=== PATIENT | male | born 1975 | race Caucasian/White ===

== ENCOUNTER 2024-11-25 16:05 | Inpatient (IN) | payer OTHER, SELFPAY ==
[2024-11-25 11:26] VITALS: BP 189/98
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
[2024-11-25] MEDS: ADACEL 0.5 ML IM (13:09)
[2024-11-25 13:22] VITALS: BMI 28.2
[2024-11-25 13:30] LABS: % Basophils 0.4 % (0-2); % Eosinophils 1.1 % (0-6); % Immature Granulocytes 0.2 % (0-0.5); % Lymphocytes 20.7 % (20.5-51.1); % Monocytes 13.9 % (1.7-9.3); % Neutrophils 63.7 % (42.2-75.2); Absolute Eosinophils 0.1 10^3/uL (0-0.7); Absolute Lymphocytes 1.7 10^3/uL (1.2-3.4); Absolute Monocytes 1.1 10^3/uL (0.1-0.6); Absolute Neutrophils 5.1 10^3/uL (1.4-6.5); Hematocrit 42.3 % (39.0-52.0); Hemoglobin 14.7 g/dL (13.0-18.0); Mean Corp Hgb Conc. 34.8 g/dL (33.0-37.0); Mean Corpuscular Hgb 31.7 pg (27.0-31.0); Mean Corpuscular Volume 91.4 fL (80.0-94.0); Nucleated Red Blood Cells % 0 % (-); Red Blood Cell Count 4.63 10^6/uL (4.70-6.10); Red Cell Dist. Width 13.8 % (11.5-14.5); White Blood Cell Count 8.1 10^3/uL (4.8-10.8)
[2024-11-25 13:34] LABS: ALT (SGPT) 54 U/L (0-50); AST (SGOT) 64 U/L (17-59); Albumin 4.4 g/dl (3.5-5.0); Alkaline Phosphatase 90 U/L (38-126); Blood Urea Nitrogen 8 mg/dl (9-20); Calcium 9.4 mg/dl (8.4-10.2); Carbon Dioxide 25 mmol/L (22-30); Chloride 106 mmol/L (98-107); Estimated Creatinine Clearance > 125 ml/min; Glucose 107 mg/dl (70-99); Potassium 4.1 mmol/L (3.5-5.1); Sodium 139 mmol/L (135-145); Total Bilirubin 1.3 mg/dl (0.2-1.3); Total Protein 7.6 g/dl (6.3-8.2); eGFR > 60.00
[2024-11-25] MEDS: UNASYN IV ×2 (13:55→20:11)
[2024-11-25 14:01] LABS: Platelet Count 131 10^3/uL (130-400)
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
--- NOTE | 2024-11-25 17:30 | PTCARENOTE ---
Patient admitted in to room 434-2. AAOx3. Able to make needs known. Oriented to unit and call justin system.
[2024-11-25 17:43] VITALS: BP 182/98
[2024-11-25 18:28] VITALS: BP 183/76
[2024-11-25] MEDS: MOTRIN 400 MG PO (20:09)
[2024-11-25] MEDS: THIAMINE INJECTION 200 MG IV (20:10)
[2024-11-25] MEDS: LEXAPRO 20 MG PO (21:35)
[2024-11-25] MEDS: WELLBUTRIN XL (24 hour extended release) 300 MG PO (21:35)
[2024-11-25] MEDS: ATIVAN 1 MG PO (21:35)
[2024-11-25 23:00] VITALS: BP 175/93
[2024-11-26] VITALS (8 sets, daily range): BP systolic 130–182; BP diastolic 70–104
[2024-11-26] MEDS: UNASYN IV ×4 (01:59→20:14)
[2024-11-26] MEDS: MOTRIN 400 MG PO ×3 (03:04→15:18)
[2024-11-26 07:20] LABS: % Basophils 0.6 % (0-2); % Eosinophils 3.1 % (0-6); % Immature Granulocytes 0.3 % (0-0.5); % Lymphocytes 27.6 % (20.5-51.1); % Neutrophils 54.4 % (42.2-75.2); Absolute Eosinophils 0.2 10^3/uL (0-0.7); Absolute Lymphocytes 1.9 10^3/uL (1.2-3.4); Absolute Neutrophils 3.7 10^3/uL (1.4-6.5); Hematocrit 42.4 % (39.0-52.0); Hemoglobin 14.6 g/dL (13.0-18.0); Mean Corp Hgb Conc. 34.4 g/dL (33.0-37.0); Mean Corpuscular Hgb 31.9 pg (27.0-31.0); Mean Corpuscular Volume 92.6 fL (80.0-94.0); Mean Platelet Volume 12.6 fL (7.4-10.4); Nucleated Red Blood Cells % 0 % (-); Platelet Count 120 10^3/uL (130-400); Red Blood Cell Count 4.58 10^6/uL (4.70-6.10); Red Cell Dist. Width 13.7 % (11.5-14.5); White Blood Cell Count 6.8 10^3/uL (4.8-10.8)
[2024-11-26 07:45] LABS: Blood Urea Nitrogen 11 mg/dl (9-20); Carbon Dioxide 25 mmol/L (22-30); Chloride 102 mmol/L (98-107); Estimated Creatinine Clearance > 125 ml/min; Glucose 100 mg/dl (70-99); Magnesium 2.3 mg/dl (1.6-2.3); Potassium 3.6 mmol/L (3.5-5.1); Sodium 138 mmol/L (135-145); eGFR > 60.00
[2024-11-26] MEDS: NORVASC 2.5 MG PO (08:34)
[2024-11-26] MEDS: THIAMINE INJECTION 200 MG IV ×2 (08:34→20:16)
[2024-11-26] MEDS: FOLVITE 1 MG PO (08:34)
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
[2024-11-26 09:10] LABS: ALT (SGPT) 46 U/L (0-50); AST (SGOT) 54 U/L (17-59); Alkaline Phosphatase 81 U/L (38-126); Direct Bilirubin 0.5 mg/dl (0.0-0.4); Total Bilirubin 1.7 mg/dl (0.2-1.3)
--- NOTE | 2024-11-26 10:27 | CM ---
CM reviewed chart. Spoke with pt. Explained role and discussed anticipated dc plan/options.
Facesheet information confirm. 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
No skilled needs noted at this time.
Pt will be driving himself home at dc.
CM/SW will continue to follow to ensure a safe and timely dc.
[2024-11-26] MEDS: KCL 20 MEQ PO (11:18)
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
[2024-11-26] MEDS: APRESOLINE 10 MG IV ×2 (15:18→18:46)
[2024-11-26] MEDS: LEXAPRO 20 MG PO (20:15)
[2024-11-26] MEDS: WELLBUTRIN XL (24 hour extended release) 300 MG PO (20:15)
[2024-11-26] MEDS: ATIVAN 1 MG PO (20:22)
[2024-11-27] MEDS: UNASYN IV ×2 (01:10→09:43)
[2024-11-27] MEDS: MOTRIN 400 MG PO (03:33)
[2024-11-27 07:00] VITALS: BP 166/96
[2024-11-27 09:20] LABS: % Basophils 0.2 % (0-2); % Eosinophils 3.7 % (0-6); % Immature Granulocytes 0.2 % (0-0.5); % Lymphocytes 25.2 % (20.5-51.1); % Monocytes 14.5 % (1.7-9.3); % Neutrophils 56.2 % (42.2-75.2); Absolute Eosinophils 0.2 10^3/uL (0-0.7); Absolute Lymphocytes 1.5 10^3/uL (1.2-3.4); Absolute Monocytes 0.9 10^3/uL (0.1-0.6); Absolute Neutrophils 3.3 10^3/uL (1.4-6.5); Hematocrit 42.7 % (39.0-52.0); Hemoglobin 14.6 g/dL (13.0-18.0); Mean Corp Hgb Conc. 34.2 g/dL (33.0-37.0); Mean Corpuscular Hgb 31.3 pg (27.0-31.0); Mean Corpuscular Volume 91.6 fL (80.0-94.0); Nucleated Red Blood Cells % 0 % (-); Platelet Count 129 10^3/uL (130-400); Red Blood Cell Count 4.66 10^6/uL (4.70-6.10); Red Cell Dist. Width 13.8 % (11.5-14.5); White Blood Cell Count 5.9 10^3/uL (4.8-10.8)
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
[2024-11-27] MEDS: THIAMINE INJECTION 200 MG IV (09:42)
[2024-11-27] MEDS: FOLVITE 1 MG PO (09:42)
[2024-11-27] MEDS: NORVASC 2.5 MG PO (09:42)
[2024-11-27 10:12] LABS: ALT (SGPT) 41 U/L (0-50); AST (SGOT) 55 U/L (17-59); Albumin 4.1 g/dl (3.5-5.0); Alkaline Phosphatase 75 U/L (38-126); Blood Urea Nitrogen 10 mg/dl (9-20); Calcium 9.3 mg/dl (8.4-10.2); Carbon Dioxide 22 mmol/L (22-30); Chloride 107 mmol/L (98-107); Direct Bilirubin 0.4 mg/dl (0.0-0.4); Estimated Creatinine Clearance > 125 ml/min; Glucose 114 mg/dl (70-99); Potassium 3.9 mmol/L (3.5-5.1); Sodium 137 mmol/L (135-145); Total Bilirubin 1.2 mg/dl (0.2-1.3); Total Protein 7.1 g/dl (6.3-8.2); eGFR > 60.00
--- NOTE | 2024-11-27 11:10 | W.PN.ID1 ---
Date of Service
Date of Service: November 27, 2024
Today's Communication
- switch to augmentin 875/125 mg po BID x14 days
Assessment / Plan
Tenosynovitis of the Right Hand due to dog bite
- provoked dog bite - dogs both vaccinated for rabies
- Tdap was given in the ER
- no foreign bodies
- on unasyn - now with further improved range of motion
- switch to augmentin 875/125 mg po BID x14 days
Chief Complaint
-: Other (tenosynovitis)
Subjective / Review of Systems
afebrile
bp stable
no events overnight
improved range of motion
Vital Signs / Physical Exam
Vital Signs
Vital Signs
Temp Pulse Resp BP Pulse Ox
97.2 F 66 16 166/96 95
11/27/24 07:00 11/27/24 07:00 11/27/24 07:00 11/27/24 07:00 11/27/24 07:00
Physical Exam
Constitutional: No Acute Distress
Cardiovascular: Regular Rate and S1/S2; Negative Murmur or Rub
Pulmonary: Clear and Symmetric; Negative Wheezes or Rales
Gastrointestinal: Soft, Non Tender, Non Distended and Normal Bowel Sounds
Musculoskeletal: Other (now with full faro dealer strength of the right hand)
Skin: Warm and Dry; Negative Rash or Jaundice
Objective Data
Lab Data
Lab Results
11/27/24 08:51
11/27/24 08:51
Estimated Creat Clear > 125 ml/min 11/27/24 08:51
Total Bilirubin 1.2 mg/dl (0.2-1.3) 11/27/24 08:51
AST 55 U/L (17-59) 11/27/24 08:51
ALT 41 U/L (0-50) 11/27/24 08:51
Alkaline Phosphatase 75 U/L (38-126) 11/27/24 08:51
Most recent labs reviewed.
Care Review
Plan reviewed with: Physician (Dr Eleanor dow)
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
== END 2024-11-27 14:43 | disposition home or self-care (01) | DRG 605 ==
LOC: 4 WEST ACU 16:05
PROVIDERS: Physician Assistant; ADMITTING PHYSICIAN Internal Medicine; CONSULT PHYSICIAN Student in an Organized Health Care Education/Training Program; EMERGENCY PHYSICIAN Emergency Medicine; FAMILY PHYSICIAN Nurse Practitioner Family
PROC: 3E0234Z Introduction of Serum, Toxoid and Vaccine into Muscle, Percutaneous Approach (ICD-10-PCS; 2024-11-25)
DX: S60.571A Other superficial bite of hand of right hand, initial encounter (principal); L03.113 Cellulitis of right upper limb; I10 Essential (primary) hypertension; F41.9 Anxiety disorder, unspecified; F17.210 Nicotine dependence, cigarettes, uncomplicated; R74.01 Elevation of levels of liver transaminase levels; S63.8X1A Sprain of other part of right wrist and hand, initial encounter; F10.90 Alcohol use, unspecified, uncomplicated; W54.0XXA Bitten by dog, initial encounter; Z23 Encounter for immunization
CPT/HCPCS: 73201; 80053; 82248; 83735; 85025; 90471; 90715; 96365; 97165; 99284; 99406; Q9967

== ENCOUNTER 2025-05-21 19:51 | Emergency (ER) | payer OTHER, SELFPAY ==
[2025-05-21 19:53] VITALS: BP 149/88
[2025-05-21 20:08] LABS: Hematocrit 41.1 % (39.0-52.0); Hemoglobin 14.2 g/dL (13.0-18.0); Mean Corp Hgb Conc. 34.5 g/dL (33.0-37.0); Mean Corpuscular Volume 92.2 fL (80.0-94.0); Nucleated Red Blood Cells % 0 % (-); Platelet Count 142 10^3/uL (130-400); Red Cell Dist. Width 13.5 % (11.5-14.5)
[2025-05-21 20:22] LABS: ALT (SGPT) 45 U/L (0-50); AST (SGOT) 75 U/L (17-59); Albumin 4.7 g/dl (3.5-5.0); Alkaline Phosphatase 76 U/L (38-126); Blood Urea Nitrogen 11 mg/dl (9-20); Calcium 9.7 mg/dl (8.4-10.2); Carbon Dioxide 25 mmol/L (22-30); Chloride 106 mmol/L (98-107); Glucose 118 mg/dl (70-99); Lipase 151 U/L (23-300); Potassium 3.7 mmol/L (3.5-5.1); Sodium 140 mmol/L (135-145); Total Protein 8.0 g/dl (6.3-8.2); eGFR > 60.00
[2025-05-21 21:39] VITALS: BMI 31.0
[2025-05-21 21:46] VITALS: BP 149/81
--- NOTE | 2025-05-21 22:26 | ED.GENMED ---
History of Present Illness
General
Chief Complaint: Rectal Bleeding
Source: patient
Time Seen by Provider: 05/21/25 22:06
History of Present Illness
History of Present Illness:
50-year-old male with past medical history of hypertension, hyperlipidemia, anxiety and depression presenting to the emergency department for evaluation of rectal bleeding which she states he believes to be related to internal hemorrhoids as he has
a history of this but noting the symptoms over the last 24 to 36 hours have been much more severe noting that he will just have spontaneous leaking now requiring him to wear adult diapers so as to not ruin his close. Patient states that he had a
large coughing spell on Wednesday which caused him some pain into the left mid to lower abdomen, notes all the pain is much improved is still slightly present and he is not sure if the symptoms are related. Patient does see a [employer] b[employer] architect due to his
internal hemorrhoids, noting he had a hemorrhoid banded about a month ago. He denies any rectal pain associated with this. No chest pain, shortness of breath, lightheadedness, near syncope like symptoms. Of note, patient often drinks 3+ beers
daily, notes he has not had a drink in about a week
Past History
Past History
ED Past Medical History: Hypercholesterolemia and Psychiatric
ED Past Surgical History: None
Social History
Tobacco: Smoker
Alcohol: Occasional
Drug: None
Personal:
Living: with family
Employment: Employed
Review of Systems
Review of Systems
All Other Systems: ROS reviewed and negative except as documented in HPI and ROS
Phy Exam
Physical Exam
Physical Exam:
GENERAL: Alert , in no apparent distress
EYE: clear conjunctiva b/l
HEAD: NCAT
ENT: o/p clr, mmm.
CARDIAC: Regular rate and rhythm .
LUNGS: Clear breath sounds bilaterally, no acute respiratory distress, no wheezes/rales/rhonchi
RECTAL EXAM: dried blood ruthie-rectally. Stool light brown with streak of blood, heme pos
ABDOMEN: Soft, without focal tenderness, no r/g, no cvat
NEUROLOGICAL: Alert and oriented
SKIN: Warm and dry, skin intact.
MUSCULOSKELETAL: No edema, well perfused.
PSYCH: Normal and appropriate interaction.
Scores
Heart Failure Risk
Heart Failure Risk Score: Not Applicable
Heart Score for Chest Pain Patients
STEMI patient?: Not applicable
Withdrawal Assessment of Alcohol
Withdrawal Assessment Completed?: Not applicable
Course
Orders/Labs/Results
Orders:
Orders
05/21/25 20:00
Complete Blood Count/With Diff Urgent
Comprehensive Metabolic Panel Urgent
Lipase Urgent
05/21/25 22:15
CT Abd/pelvis W Iv Cont Urgent
Comment:
Reason For Exam: rectal bleeding, mild pain LLQ
05/21/25 22:36
PT/INR [Prothrombin Time] Urgent
PTT Urgent
Abnormal Lab Results
05/21/25 05/21/25
20:00 22:36
RBC 4.46 L 10^6/uL
(4.70-6.10)
MCH 31.8 H pg
(27.0-31.0)
MPV 12.4 H fL
(7.4-10.4)
Absolute Monos (auto) 0.7 H 10^3/uL
(0.1-0.6)
Monocytes % 9.6 H %
(1.7-9.3)
PT 15.8 H Sec
(11.4-14.6)
APTT 35.6 H Sec
(23.4-35.0)
Glucose 118 H mg/dl
(70-99)
AST 75 H U/L
(17-59)
05/21/25 20:00
05/21/25 20:00
Vital Signs
Initial and Last Documented VS:
Initial Vital Signs
Temp Pulse Resp BP Pulse Ox
98.5 F 94 16 149/88 98
05/21/25 19:53 05/21/25 19:53 05/21/25 19:53 05/21/25 19:53 05/21/25 19:53
Last Documented Vital Signs
Temp Pulse Resp BP Pulse Ox
98.5 F 86 20 163/97 97
05/21/25 19:53 05/22/25 00:00 05/22/25 00:00 05/22/25 00:54 05/22/25 00:00
MDM/Problems Addressed
Differential Diagnosis Includes:
Internal Hemorrhoid
External Hemorrhoid
Anal fissure
Diverticulitis
Diverticulosis
Anemia
Gastritis
MDM/Problems Addressed:
50-year-old male presenting the ER for evaluation of rectal bleeding. Based off description of bleeding I have high degree of suspicion for internal hemorrhoid bleeding. I am going to order a CT scan of the abdomen due to patient's reported pain
in the left side of his abdomen although I do suspect this is more from a muscle strain given it occurred in after patient reports he had a harsh cough. Labs were ordered on arrival which show a stable hemoglobin. CT scan ordered. Disposition
pending
*Radiology
Radiology exam reviewed: radiology read reviewed
*Pulse Oximetry
SaO2: 98
Oxygen Mode of Delivery: Room air
Patient hypoxic: no
*Critical Care Note
Total Time (30-74mins, 75-104mins- exclusive of procedures): Not Applicable
Patient Management
Escalation/DeEscalation of care consider admission/obs:
Patient CT scan shows no acute bowel pathology. Overall I still have high degree of suspicion for hemorrhoidal bleeding. Patient without any further significant bleeding here. Symptoms remain under control. Prescription for Anusol sent to
patient's pharmacy. 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 Patient aware of return precautions to the ER.
ED Attending Note
-
Portions of this chart may have been created with voice recognition software.� Occasional wrong word or��sound alike� substitutions may have occurred due to the inherent limitations of voice recognition software.
Discharge Plan
Departure
Patient Disposition: Home (Routine Discharge)
Date of Disposition: 05/22/25
Time of Disposition: 00:53
Patient with high blood pressure during this ER visit?: Yes
Discharge Problem:
Bleeding hemorrhoids
Instructions: Hemorrhoids - ED (DC)
Prescriptions:
New
hydrocortisone acetate [Anusol-HC] 25 mg suppository
25 mg ND BID Qty: 24 0RF
No Action
lorazepam 0.5 mg Tablet
1 mg PO HSPRN PRN (Reason: sleep)
ibuprofen 200 mg Tablet
400 mg PO Q6HPRN PRN (Reason: mild pain)
hydroxyzine pamoate 25 mg Capsule
50 mg PO HSPRN PRN (Reason: sleep)
escitalopram oxalate 20 mg Tablet
20 mg PO HS
bupropion HCl 300 mg Tablet Extended Release 24 Hr
300 mg PO HS
amlodipine 2.5 mg Tablet
2.5 mg PO DAILY Qty: 30 0RF
amoxicillin-pot clavulanate 875-125 mg tablet
1 tab PO Q12H 14 Days Qty: 28 0RF
Referrals:
David Roy MD [Active, ColoRectal]
Ria Bailey CRNP [Family Provider]
Stand Alone Forms: Return to Work
Interventions
Interventions:
*Risk Screen - Suicide Last Done: 05/21/25 21:39
*General Assessment Last Done: 05/21/25 21:39
*Neglect/Abuse Screening Last Done: 05/21/25 21:39
*ED- Fall Risk Assessment Last Done: 05/21/25 21:39
*ED COVID-19 Vaccine History Last Done: 05/22/25 00:40
*Nursing Disposition Last Done: 05/22/25 00:58
JT-Kkjuav-Beluztbbov Assessment Last Done: 05/21/25 21:47
ED- Cardiac Assessment Last Done: 05/21/25 21:47
ED- Pulmonary Assessment Last Done: 05/21/25 21:47
Discharge Date and Time
Print Language: SLOVAK
[2025-05-21 22:51] LABS: INR 1.24; PT 15.8 Sec (11.4-14.6)
[2025-05-21 22:52] LABS: APTT 35.6 Sec (23.4-35.0)
[2025-05-22 00:54] VITALS: BP 163/97
== END 2025-05-22 00:59 | disposition home or self-care (01) ==
LOC: EMR 19:51
PROVIDERS: Emergency Medicine; EMERGENCY PHYSICIAN Emergency Medicine; FAMILY PHYSICIAN Nurse Practitioner Family
DX: K62.5 Hemorrhage of anus and rectum (principal); R10.32 Left lower quadrant pain; K64.8 Other hemorrhoids; R05.9 Cough, unspecified; E78.00 Pure hypercholesterolemia, unspecified; F32.A Depression, unspecified; F41.9 Anxiety disorder, unspecified; I10 Essential (primary) hypertension; F17.200 Nicotine dependence, unspecified, uncomplicated
CPT/HCPCS: 99284; 74177; 80053; 83690; 85025; 85610; 85730; Q9967

== ENCOUNTER 2025-06-26 19:16 | Emergency (ER) | payer OTHER, SELFPAY ==
[2025-06-26 19:19] VITALS: BP 147/90
[2025-06-26 20:10] VITALS: BMI 31.9
[2025-06-26 20:15] VITALS: BP 153/85
--- NOTE | 2025-06-26 21:14 | ED.GENMED ---
History of Present Illness
General
Chief Complaint: Swelling
Source: patient
Time Seen by Provider: 06/26/25 20:38
History of Present Illness
History of Present Illness:
50-year-old male with past medical history of hyperlipidemia presenting to the emergency department for evaluation of bilateral lower extremity swelling has been ongoing the last 2 weeks accompanied with some mild lower back pain, family friends
thought the patient might have kidney problems which is why he presented to the ER today. Patient notes that the swelling to the legs will often get better after awakening and worsens throughout the day, describes a heaviness/aching sensation.
Patient notes while there is no color change there was a slight area of erythema along the right anterior leg but there is no pain associated with this. He denies any fevers, chills, rigors. No risk factors for DVT other than smoking. Denies
recent travel or family history. Patient is otherwise denying shortness of breath, exertional dyspnea, orthopnea, chest pain, palpitations, cough or any other symptoms suggestive of a cardiopulmonary process
Past History
Past History
ED Past Medical History: Hypercholesterolemia and Psychiatric
ED Past Surgical History: None
Social History
Tobacco: Smoker
Alcohol: Occasional
Drug: None
Personal:
Living: with family
Employment: Employed
Review of Systems
Review of Systems
All Other Systems: ROS reviewed and negative except as documented in HPI and ROS
Phy Exam
Physical Exam
Physical Exam:
GENERAL: Alert , in no apparent distress
HEAD: Normocephalic atraumatic
EYE: conjunctiva clear
NECK: Supple
ENT: o/p clr, mmm.
CARDIAC: Regular rate and rhythm
LUNGS: Clear breath sounds bilaterally, no acute respiratory distress, no wheezes/rales/rhonchi
NEUROLOGICAL: Alert and oriented
SKIN: Warm and dry, skin intact. Slight erythema that is nontender, nonraised, does not jan to the right anterior lower leg
MUSCULOSKELETAL: well perfused. Moderate trace pitting edema to the ankles, edema extends into the proximal portion of the bilateral tib-fib region, right is slightly worse than left. Sensation intact and equal, warm, cap refill less than 2
seconds. Full range of motion
PSYCH: Normal and appropriate interaction.
Scores
Heart Failure Risk
Heart Failure Risk Score: Not Applicable
Heart Score for Chest Pain Patients
STEMI patient?: Not applicable
Withdrawal Assessment of Alcohol
Withdrawal Assessment Completed?: Not applicable
Course
Orders/Labs/Results
Orders:
Orders
06/26/25 20:54
Venous Doppler Lwr Ext Bilat [US Periph Venous LOWER Ext Dylan] Urgent
Comment:
Reason For Exam: edema
06/26/25 21:37
Complete Blood Count/With Diff Urgent
Comprehensive Metabolic Panel Urgent
Urinalysis Urgent
Date Specimen was Collected: 06/26/25
Time Specimen was Collected: 21:31
Urine Microscopic Urgent
Date Specimen was Collected: 06/26/25
Time Specimen was Collected: 21:31
Abnormal Lab Results
06/26/25
21:37
RBC 4.43 L 10^6/uL
(4.70-6.10)
MCH 31.4 H pg
(27.0-31.0)
MPV 12.0 H fL
(7.4-10.4)
Absolute Monos (auto) 0.8 H 10^3/uL
(0.1-0.6)
Monocytes % 12.5 H %
(1.7-9.3)
BUN 7 L mg/dl
(9-20)
AST 65 H U/L
(17-59)
Total Protein 8.4 H g/dl
(6.3-8.2)
Urine Occult Blood 3+ A
(Negative)
Ur Leukocyte Esterase 2+ A
(Negative)
Urine RBC 3-6 A /HPF
(0-2)
Urine Albumin 2+ A
(Neg - Trace)
06/26/25 21:37
06/26/25 21:37
Vital Signs
Initial and Last Documented VS:
Initial Vital Signs
Temp Pulse Resp BP Pulse Ox
98.1 F 80 16 147/90 99
06/26/25 19:19 06/26/25 19:19 06/26/25 19:19 06/26/25 19:19 06/26/25 19:19
Last Documented Vital Signs
Temp Pulse Resp BP Pulse Ox
98.1 F 84 16 151/78 97
06/26/25 19:19 06/26/25 22:15 06/26/25 22:15 06/26/25 22:00 06/26/25 22:15
MDM/Problems Addressed
Differential Diagnosis Includes:
PVD
PAD
DVT
Cellulitis
Phlebitis
CHF
MDM/Problems Addressed:
50-year-old male presenting to the ER for evaluation of bilateral lower extremity edema. Symptoms gradually worsening over the last 2 weeks. Patient with risk factors for DVT including smoking. Risk factors for peripheral vascular disease include
smoking and hyperlipidemia. Will obtain labs, urine and ultrasound imaging. Anticipate need for outpatient follow-up.
*Radiology
Radiology exam reviewed: radiology read reviewed
*Pulse Oximetry
SaO2: 99
Oxygen Mode of Delivery: Room air
Patient hypoxic: no
*Critical Care Note
Total Time (30-74mins, 75-104mins- exclusive of procedures): Not Applicable
Patient Management
Escalation/DeEscalation of care consider admission/obs:
Ultrasound negative for DVT. Labs reassuring. Patient does have hematuria which he notes is chronic for him and has been worked up multiple times in the past as well as proteinuria. Patient does take amlodipine which can cause some mild lower
extremity edema and I did discuss this with the patient. Urged close follow-up with primary care provider as well as can use compression socks and elevation of the extremities to help with the swelling. At this time patient is stable for discharge
home, aware of return precautions to the ER.
ED Attending Note
-
Portions of this chart may have been created with voice recognition software.� Occasional wrong word or��sound alike� substitutions may have occurred due to the inherent limitations of voice recognition software.
Discharge Plan
Departure
Patient Disposition: Home (Routine Discharge)
Date of Disposition: 06/26/25
Time of Disposition: 22:14
Patient with high blood pressure during this ER visit?: Yes
Discharge Problem:
Edema
Instructions: Dependent Edema (DC)
Prescriptions:
No Action
lorazepam 0.5 mg Tablet
1 mg PO HSPRN PRN (Reason: sleep)
ibuprofen 200 mg Tablet
400 mg PO Q6HPRN PRN (Reason: mild pain)
hydroxyzine pamoate 25 mg Capsule
50 mg PO HSPRN PRN (Reason: sleep)
escitalopram oxalate 20 mg Tablet
20 mg PO HS
bupropion HCl 300 mg Tablet Extended Release 24 Hr
300 mg PO HS
amlodipine 2.5 mg Tablet
2.5 mg PO DAILY Qty: 30 0RF
amoxicillin-pot clavulanate 875-125 mg tablet
1 tab PO Q12H 14 Days Qty: 28 0RF
hydrocortisone acetate [Anusol-HC] 25 mg suppository
25 mg ID BID Qty: 24 0RF
Stand Alone Forms: Return to Work
Interventions
Interventions:
*Risk Screen - Suicide Last Done: 06/26/25 19:21
*General Assessment Last Done: 06/26/25 20:11
*Neglect/Abuse Screening Last Done: 06/26/25 19:21
*ED- Fall Risk Assessment Last Done: 06/26/25 20:11
*ED COVID-19 Vaccine History Last Done: 06/26/25 20:11
*ED Influenza Vaccine History Last Done: 06/26/25 20:11
*Nursing Disposition Last Done: 06/26/25 22:26
ED- Cardiac Assessment Last Done: 06/26/25 20:15
ED- Pulmonary Assessment Last Done: 06/26/25 20:15
ED-Skin Assessment Last Done: 06/26/25 20:15
Discharge Date and Time
Discharge Date/Time: 06/26/25 22:30
Print Language: ISRAELI
[2025-06-26 21:25] VITALS: BP 151/84
[2025-06-26 21:44] LABS: Hematocrit 40.1 % (39.0-52.0); Hemoglobin 13.9 g/dL (13.0-18.0); Mean Corp Hgb Conc. 34.7 g/dL (33.0-37.0); Mean Corpuscular Volume 90.5 fL (80.0-94.0); Nucleated Red Blood Cells % 0 % (-); Platelet Count 155 10^3/uL (130-400); Red Cell Dist. Width 13.3 % (11.5-14.5); Urine Character Clear (Clear)
[2025-06-26 21:57] LABS: Urine Squamous Cell 0-2 /LPF (Few)
[2025-06-26 22:00] VITALS: BP 151/78
[2025-06-26 22:12] LABS: ALT (SGPT) 44 U/L (0-50); AST (SGOT) 65 U/L (17-59); Albumin 4.7 g/dl (3.5-5.0); Alkaline Phosphatase 70 U/L (38-126); Blood Urea Nitrogen 7 mg/dl (9-20); Calcium 9.5 mg/dl (8.4-10.2); Carbon Dioxide 22 mmol/L (22-30); Chloride 106 mmol/L (98-107); Estimated Creatinine Clearance > 125 ml/min; Glucose 93 mg/dl (70-99); Potassium 3.6 mmol/L (3.5-5.1); Sodium 140 mmol/L (135-145); Total Protein 8.4 g/dl (6.3-8.2); eGFR > 60.00
== END 2025-06-26 22:30 | disposition home or self-care (01) ==
LOC: EMR 19:16
PROVIDERS: Physician Assistant Medical; EMERGENCY PHYSICIAN Emergency Medicine; FAMILY PHYSICIAN Nurse Practitioner Family
DX: R60.0 Localized edema (principal); E78.00 Pure hypercholesterolemia, unspecified; F17.200 Nicotine dependence, unspecified, uncomplicated
CPT/HCPCS: 99284; 80053; 81003; 81015; 85025; 93970